=== PATIENT | male | born 1995 | race Two or more races ===

== ENCOUNTER 2020-12-09 01:29 | Emergency (ER) | payer SELFPAY ==
[~2020-12-09] VITALS: Ht 188 cm; Wt 83.9 kg
[2020-12-09 01:39] VITALS: BP 157/75
--- NOTE | 2020-12-09 01:44 | NUR ---
PATIENT CAME TO THE ER BED 13 C/O LEFT FOOT PAIN. PATIENT STATES THAT HE HAS BEEN WALKING ALL DAY. NO SIGNS OF DEFORMITY. MINIMAL SWELLING. PATIENT IS AAOX4. NO SOB. BREATHING EVENLY AND UNLABORED ON ROOM AIR.
--- NOTE | 2020-12-09 05:15 | NUR ---
PATIENT IS SLEEPING. EASILY AROUSABLE THROUGH VERBAL STIMULI. CONNECTED TO THE MONITOR. VSS. SIDE RAILS UP FOR SAFETY, CALL LIGHT IS WITHIN REACH.
--- NOTE | 2020-12-09 06:05 | NUR ---
PROVIDED LILIYA BANDAGE WRAPPING ON PATIENT FOR THE LEFT KNEE.
--- NOTE | 2020-12-09 06:40 | NUR ---
Patient discharged to home in stable condition. Written and verbal after care instructions given. Patient verbalizes understanding of instruction.
== END 2020-12-09 06:46 | disposition home or self-care (01) ==
LOC: ER 01:31
DX: M79.672 Pain in left foot (principal); Z59.0 Homelessness
CPT/HCPCS: 73630-TC